=== PATIENT | male | born 1930 | race Caucasian/White ===

== ENCOUNTER 2018-02-04 19:43 | Emergency (ER) | payer MEDICARE ==
[~2018-02-04] VITALS: Ht 160 cm; Wt 52.7 kg
[2018-02-04 21:45] LABS: BASO % 0.7 % (0.0-2.0); EOS # 0.2 (0.0-0.7); EOS % 3.9 % (0-4.0); GRAN # 3.1 (1.4-6.5); GRAN % 57.9 % (42.2-75.2); HEMATOCRIT 35.4 % (42.0-52.0); HEMOGLOBIN 12.1 g/dl (13.5-18.0); LYMPH # 1.5 (1.2-3.4); LYMPH % 28.2 % (20.0-51.0); MEAN CELL VOLUME 92 fl (80.0-100.0); MEAN CORPUSCULAR HEMOGLOBIN 31 pg (27.0-31.0); MEAN CORPUSCULAR HGB CONC 34 g/dl (33.0-37.0); MONO # 0.5 (0.1-0.6); MONO % 8.9 % (1.7-9.3); PLATELET COUNT 202 K/mm3 (130-400); RED BLOOD COUNT 3.87 M/mm3 (4.20-5.60); REDCELL DISTRIBUTION WIDTH-CV 13.3 % (11.5-14.5)
[2018-02-04 21:55] LABS: CALCIUM 8.8 mg/dL (8.4-10.2); CREATININE, serum 0.65 mg/dL (0.66-1.25); POTASSIUM 4.2 mmol/L (3.4-5.0)
[2018-02-04] MEDS ORDERED: LEVOXYL0.075 MG PO (22:09)
[2018-02-04] MEDS ORDERED: COREG CR10 MG PO (22:09)
[2018-02-04] MEDS ORDERED: SINEMET 10/101 UDTAB PO (22:10)
[2018-02-04 23:00] VITALS: BP 166/75; PULSE 69; TEMP 96.4
== END 2018-02-04 23:00 | disposition short-term general hospital (02) ==
LOC: COL.ER 19:43
PROVIDERS: Emergency Medicine
DX: S12.110A Anterior displaced Type II dens fracture, initial encounter for closed fracture (principal); S32.019A Unspecified fracture of first lumbar vertebra, initial encounter for closed fracture; S32.029A Unspecified fracture of second lumbar vertebra, initial encounter for closed fracture; S32.039A Unspecified fracture of third lumbar vertebra, initial encounter for closed fracture; G20 Parkinson's disease; D35.2 Benign neoplasm of pituitary gland; W18.30XA Fall on same level, unspecified, initial encounter; Y92.002 Bathroom of unspecified non-institutional (private) residence as the place of occurrence of the external cause; Z91.81 History of falling
CPT/HCPCS: J3010; J7040

== ENCOUNTER → 2018-02-19 | Outpatient (REF) ==
[~2018-02-19] MED LIST: COREG CR10 MG PO; LEVOXYL0.075 MG PO; SINEMET 10/101 UDTAB PO
== END ==
LOC: ZCOL.LAB 11:16
DX: E87.1 Hypo-osmolality and hyponatremia (principal)

== ENCOUNTER → 2018-02-20 | Outpatient (REF) | LOC: ZCOL.LAB 11:15 | DX: Z01.89 Encounter for other specified special examinations (principal) ==